=== PATIENT | female | born 1995 | race Caucasian/White ===

== ENCOUNTER 2017-05-21 19:26 | Emergency (ER) | payer BC ==
[~2017-05-21] VITALS: Ht 152.4 cm; Wt 46.8 kg
[~2017-05-21 19:26] MED LIST: PAMELOR50 MG PO; RECLIPSEN 0.151 TAB PO; TOPAMAX50 MG PO
[2017-05-21 19:37] VITALS: BP 138/86; PULSE 82; TEMP 97.8
[2017-05-21] MEDS ORDERED: LEXAPRO 10MG10 MG PO (19:41)
[2017-05-21] MEDS ORDERED: [UNRECOGNIZED DRUG - OTHER] (19:42)
[2017-05-21 21:59] LABS: BASO % 0.3 % (0.0-2.0); EOS % 0.5 % (0-4.0); GRAN # 4.1 (1.4-6.5); GRAN % 51.3 % (42.2-75.2); HEMATOCRIT 37.6 % (37.0-47.0); HEMOGLOBIN 12.7 g/dl (12.5-16.0); LYMPH # 3.5 (1.2-3.4); LYMPH % 43.8 % (20.0-51.0); MEAN CELL VOLUME 87 fl (80.0-100.0); MEAN CORPUSCULAR HEMOGLOBIN 30 pg (27.0-31.0); MEAN CORPUSCULAR HGB CONC 34 g/dl (33.0-37.0); MEAN PLATELET VOLUME 9.5 fl (7.4-10.4); MONO # 0.3 (0.1-0.6); PLATELET COUNT 370 K/mm3 (130-400); REDCELL DISTRIBUTION WIDTH-CV 12.7 % (11.5-14.5)
== END 2017-05-21 22:48 | disposition home or self-care (01) ==
LOC: COL.ER 19:26
PROVIDERS: Family Medicine
DX: G43.909 Migraine, unspecified, not intractable, without status migrainosus (principal); H55.00 Unspecified nystagmus
CPT/HCPCS: J1170; J2550; J3030

== ENCOUNTER → 2017-07-01 | Outpatient (REF) ==
[~2017-07-01] MED LIST changes: +LEXAPRO 10MG10 MG PO; +[UNRECOGNIZED DRUG - OTHER]
== END ==
LOC: WSOH 14:17
DX: Z02.89 Encounter for other administrative examinations (principal)

== ENCOUNTER 2017-07-18 13:23 | Outpatient (RCR) | payer BC | END 2017-10-16 | disposition home or self-care (01) | LOC: WSST | DX: R06.02 Shortness of breath (principal) ==